=== PATIENT | male | born 1990 | race Caucasian/White ===

== ENCOUNTER 2016-07-23 12:39 | Emergency (ER) | payer BC, MEDICAID ==
[~2016-07-23] VITALS: Ht 180.3 cm; Wt 89.8 kg
[2016-07-23 15:01] VITALS: BP 122/71
== END 2016-07-23 15:01 | disposition home or self-care (01) ==
LOC: ED 12:39
DX: B34.9 Viral infection, unspecified (principal); I10 Essential (primary) hypertension
CPT/HCPCS: 87804; Q0162